=== PATIENT | female | born 1965 | race Native Hawaiian/Other Pacific Islander ===

== ENCOUNTER 2021-07-05 18:50 | Emergency (ER) | payer OTHER ==
[~2021-07-05] VITALS: Ht 142.2 cm; Wt 108.9 kg
[2021-07-05 18:50] VITALS: BP 116/58; TEMP 98.1
[2021-07-05 19:14] LABS: PLATELET COUNT 186 K/uL (152-353)
[2021-07-05 19:25] LABS: POTASSIUM 4.2 mmol/L (3.6-5.2)
[2021-07-06] MEDS ORDERED: LEVO-T125 MCG PO (09:01)
[2021-07-06] MEDS ORDERED: CARB6.5S5 OTIC (09:02)
[2021-07-06] MEDS ORDERED: ALEN70TA19 PO (09:08)
[2021-07-06] MEDS ORDERED: MULTIVITAMI1 PO (09:09)
[2021-07-06] MEDS ORDERED: D2000 ULTRA2000 UNIT PO (09:11)
[2021-07-06] MEDS ORDERED: VALACYCLOVIR HYD1 GM PO (09:12)
[2021-07-06] MEDS ORDERED: FAMOTIDINE20 MG PO (09:13)
[2021-07-06] MEDS ORDERED: CETI10TA PO (09:14)
[2021-07-06] MEDS ORDERED: VENLAFAXINE225 MG PO (09:15)
[2021-07-06] MEDS ORDERED: B-12500 MCG PO (09:15)
[2021-07-06] MEDS ORDERED: FUROSEMIDE20 MG PO (09:16)
[2021-07-06] MEDS ORDERED: JANUVIA25 MG PO (09:16)
[2021-07-06] MEDS ORDERED: POT CHLORIDE10 ME1 PO (09:17)
[2021-07-06] MEDS ORDERED: LACTULOSE10 GM/151 PO (09:18)
[2021-07-06] MEDS ORDERED: DICL50TA PO (09:20)
[2021-07-06] MEDS ORDERED: AZEL137S INH (10:13)
[2021-07-06] MEDS ORDERED: LUBRICANT EYE D OPTH (10:15)
[2021-07-06] MEDS ORDERED: GNP MELATONIN MA5 MG PO (10:16)
[2021-07-06] MEDS ORDERED: ONDANSETRON HYDR4 MG PO (10:17)
[2021-07-06] MEDS ORDERED: TYLENOL325 MG PO (10:19)
[2021-07-06] MEDS ORDERED: [UNRECOGNIZED DRUG - OTHER] PO (10:19)
[2021-07-06] MEDS ORDERED: TYLENOL COLD PO (10:19)
[2021-07-06] MEDS ORDERED: MAALOX ADVAN PO (10:20)
[2021-07-06] MEDS ORDERED: HYDROXYZINE HYD25 MG PO (10:21)
[2021-07-06] MEDS ORDERED: DIPH25CA90 PO (10:22)
[2021-07-06] MEDS ORDERED: TIZANIDINE HYDRO4 M1 PO (10:23)
[2021-07-06] MEDS ORDERED: BISACODYL5 M1 PO (10:24)
[2021-07-06] MEDS ORDERED: NITROGLYCERIN0.4 MG PO (10:25)
[2021-07-06] MEDS ORDERED: CLOPIDOGREL75 MG PO (10:25)
[2021-07-06] MEDS ORDERED: SYMBICORT1 AE1 PO (10:26)
[2021-07-06] MEDS ORDERED: ARIPIPRAZOLE2 MG PO (10:27)
[2021-07-06] MEDS ORDERED: ENDOCET1 TA3 PO (10:28)
[2021-07-06] MEDS ORDERED: LYRICA150 MG PO (10:29)
[2021-07-06] MEDS ORDERED: TIZA4TAB5 PO (10:37)
== END 2021-07-05 20:28 | disposition still patient (30) ==
LOC: ED 18:50
PROVIDERS: Emergency Medicine
DX: F33.9 Major depressive disorder, recurrent, unspecified (principal); Z11.52 Encounter for screening for COVID-19; Z04.6 Encounter for general psychiatric examination, requested by authority
CPT/HCPCS: 36415; 80053; 85027; 87635; 93005; 99283; U0003